=== PATIENT | female | born 1965 | race Caucasian/White ===

== ENCOUNTER → 2017-03-24 | Outpatient (CLI) | payer BC ==
--- NOTE | 2017-03-24 17:33 | US ---
EXAMINATION TYPE: US gallbladder DATE OF EXAM: 03/24/2017 COMPARISON: Prior US and CT in PACS CLINICAL HISTORY: R10.11 RUQ Pain, nausea . EXAM MEASUREMENTS: Liver Length: 15.7 cm Gallbladder Wall: 0.2 cm CBD: 0.7 cm Right Kidney: 10.7 x 3.4 x 4.0 cm Pancreas: Obscured by bowel gas, visualized portions show no mass Liver: wnl Gallbladder: No stones or sludge visualized Evidence for sonographic Marinelli's sign: Yes, patient states she is in pain during the exam CBD: Dilated. CBD was also dilated on exam in 2013 Right Kidney: No hydronephrosis or masses seen IMPRESSION: No acute process seen.
== END | disposition home or self-care (01) ==
LOC: RADUSMAIN 16:57
PROVIDERS: ATTEND Family Medicine
DX: R10.11 Right upper quadrant pain (principal)
CPT/HCPCS: 76705

== ENCOUNTER → 2017-12-03 | Outpatient (CLI) | payer BC ==
--- NOTE | 2017-12-04 11:01 | MM ---
Reason for exam: screening (asymptomatic). Last mammogram was performed 4 years and 7 months ago. History: Patient is postmenopausal. Took hormonal contraceptives for 23 years. Physical Findings: A clinical breast exam by your physician is recommended on an annual basis and results should be correlated with mammographic findings. MG Screening Mammo w CAD Bilateral CC and MLO view(s) were taken. Prior study comparison: May 04, 2013, bilateral digital screening mammo w/CAD. June 04, 2011, CAD bilateral diagnostic mammogram. The breast tissue is heterogeneously dense. This may lower the sensitivity of mammography. No suspicious abnormality. No significant changes when compared with prior studies. ASSESSMENT: Negative, BI-RAD 1 RECOMMENDATION: Routine screening mammogram of both breasts in 1 year.
== END | disposition home or self-care (01) ==
LOC: RADMAMWWP 16:47
PROVIDERS: ATTEND Obstetrics & Gynecology
DX: Z12.31 Encounter for screening mammogram for malignant neoplasm of breast (principal)
CPT/HCPCS: 77067

== ENCOUNTER → 2018-08-02 | Outpatient (CLI) | payer BC ==
--- NOTE | 2018-08-03 20:41 | BD ---
EXAMINATION TYPE: Axial Bone Density DATE OF EXAM: 08/02/2018 COMPARISON: NONE CLINICAL HISTORY: 53 YR OLD FEMALE.....ICD-10 CODE: Z78.0 POST MENOPAUSAL SYMPTOMS Height: 63.2 Weight: 126 FRAX RISK QUESTIONS: Current Tobacco Use: YES RISK FACTORS HISTORY OF: Active: YES Postmenopausal woman: YES, AT AGE 46 MEDICATIONS: Additional Medications: REFLUX MEDS, NEXIUM Additional History: GURD EXAM MEASUREMENTS: Bone mineral densitometry was performed using the [employer] System. Bone mineral density as measured about the Lumbar spine is: ----- L1-L4(G/cm2): 1.256 T Score Values are as follows: ----- L1: -0.4 ----- L2: 0.6 ----- L3: 1.9 ----- L4: 0.1 ----- L1-L4: 0.6 Bone mineral density FIRST BONE DENSITY......BASELINE STUDY Bone mineral density about the R hip (g/cm2): 0.972 Bone mineral density about the L hip (g/cm2): 1.036 T Score values are as follows: -----R Neck: -0.2 -----L Neck: -0.1 -----R Total: 0.2 -----L Total: -0.3 Bone mineral density BASELINE STUDY FRAX%s: THERE IS A 4.7% CHANCE FOR A MAJOR OSTEOPOROTIC FX AND A 0.2% FOR HIP FX....PROBABILITY OF FX IN 10 YRS TIME IMPRESSION: Normal (Values between +1 and -1 indicate normal bone mass). Consider repeating this study in 5 year s or sooner if there is some new clinical indication. NOTE: T-SCORE=SD OF THE YOUNG ADULT MEAN.
== END | disposition home or self-care (01) ==
LOC: RADBDWWP 16:23
PROVIDERS: ATTEND Family Medicine
DX: Z13.820 Encounter for screening for osteoporosis (principal); Z78.0 Asymptomatic menopausal state
CPT/HCPCS: 77080

== ENCOUNTER → 2023-05-18 | Outpatient (CLI) | payer OTHER ==
--- NOTE | 2023-05-18 08:08 | MM ---
Reason for Exam: Clinical finding. Last mammogram was performed 5 year(s) and 5 month(s) ago. Indicated Problems: Lump or thickening of the right side for 1 Week(s). Patient History: Menarche at age 12. First Full-Term at age 15. Postmenopausal. Patient used Hormonal Contraceptives for 23 years. Risk Values: Paulette 5 year model risk: 0.9%. NCI Lifetime model risk: 4.9%. Prior Study Comparison: 08/20/2009 Left Diagnostic Mammogram, [facility]. 06/04/2011 Bilateral Diagnostic Mammogram, [facility]. 05/04/2013 Bilateral Screening Mammogram, [facility]. 12/03/2017 Bilateral Screening Mammogram, [facility]. Tissue Density: There are scattered fibroglandular densities. Findings: Analyzed By CAD. Pattern appears symmetrical and stable. Scattered benign-appearing calcifications are present. A marker locates a palpable abnormality within the right breast. On the mediolateral oblique view there is 0.5 cm oval density located 6 cm from the nipple. Ultrasound is recommended for additional evaluation. Overall Assessment: Incomplete: need additional imaging evaluation, BI-RAD 0 Management: Diagnostic Breast Ultrasound of the right breast. A negative mammogram report should not preclude additional follow up of suspicious palpable abnormalities. Patient should continue monthly self breast exam. A clinical breast exam by your physician is recommended on an annual basis and results should be correlated with mammographic findings. Electronically signed and approved by: Drake Severino D.O. Radiologis
--- NOTE | 2023-05-18 09:00 | USB ---
Reason for Exam: Clinical finding. Patient History: Menarche at age 12. First Full-Term at age 15. Postmenopausal. Patient used Hormonal Contraceptives for 23 years. Risk Values: Paulette 5 year model risk: 0.9%. NCI Lifetime model risk: 4.9%. Prior Study Comparison: 06/04/2011 Bilateral Diagnostic Mammogram, [facility]. 05/04/2013 Bilateral Screening Mammogram, [facility]. 12/03/2017 Bilateral Screening Mammogram, [facility]. Findings: The area of palpable concern of the right breast, the axilla of the right breast and the retroareolar of the right breast were scanned. There is a thick-walled hypoechoic area measuring 0.5 x 0.3 x 0.5 cm subcutaneous tissues at the palpable abnormality. Small complex cyst or abscess could be considered. Short-term follow-up is recommended. This may have an adjacent hypoechoic rounded area could be a small cyst but is too small to classify.. Overall Assessment: Probably benign, BI-RAD 3 Management: Diagnostic Breast Ultrasound of the right breast in 3 months. A clinical breast exam by your physician is recommended on an annual basis and results should be correlated with mammographic findings. This exam should not preclude additional follow-up of suspicious palpable abnormalities. Results were given to the patient verbally at the time of exam. Electronically signed and approved by: Drake Severino D.O. Radiologis
== END | disposition home or self-care (01) ==
LOC: RADMAMWWP 07:31
PROVIDERS: ATTEND Family Medicine
DX: N63.10 Unspecified lump in the right breast, unspecified quadrant (principal); Z78.0 Asymptomatic menopausal state
CPT/HCPCS: 77062; 77066

== ENCOUNTER → 2023-08-19 | Outpatient (CLI) | payer OTHER ==
--- NOTE | 2023-08-19 13:41 | MM ---
Reason for Exam: Follow-up at short interval from prior study. Last screening mammogram was performed 3 month(s) ago. Patient History: Menarche at age 12. First Full-Term at age 15. Postmenopausal. Patient used Hormonal Contraceptives for 23 years. Risk Values: Paulette 5 year model risk: 0.9%. NCI Lifetime model risk: 4.9%. Prior Study Comparison: 05/04/2013 Bilateral Screening Mammogram, [facility]. 12/03/2017 Bilateral Screening Mammogram, [facility] 05/18/2023 Bilateral MG 3D diag mammo w/cad [facility], [facility]. Tissue Density: Right: There are scattered fibroglandular densities. Findings: Analyzed By CAD. Chronic nodularity central right breast. We note the location of the previous alcohol marker along the medial aspect. A subtle underlying low-density nodularity seen 3 months ago is no longer identified. No significant change from prior exams. Overall Assessment: Incomplete: need additional imaging evaluation, BI-RAD 0 Management: Diagnostic Breast Ultrasound of the right breast. Electronically signed and approved by: Florentino Krause M.D. Radiologist
--- NOTE | 2023-08-19 14:25 | USB ---
Reason for Exam: Follow-up at short interval from prior study. Patient History: Menarche at age 12. First Full-Term at age 15. Postmenopausal. Patient used Hormonal Contraceptives for 23 years. Risk Values: Paulette 5 year model risk: 0.9%. NCI Lifetime model risk: 4.9%. Technique: Method: Targeted. Prior Study Comparison: 05/04/2013 Bilateral Screening Mammogram, [facility]. 12/03/2017 Bilateral Screening Mammogram, [facility]. 05/18/2023 Bilateral MG 3D diag mammo w/cad [facility], [facility]. Findings: The lower inner quadrant of the right breast, the axilla of the right breast and the retroareolar of the right breast were scanned. Targeted ultrasound medial aspect of the right breast from 12:00 to 6:00 including the subareolar region and axilla. The previous heterogeneous area at the patient's 3:00 site has resolved. Patient no longer has a palpable abnormality. No other solid or cystic lesion. Findings compatible with a small hematoma that has resolved.. Overall Assessment: Benign, BI-RAD 2 Management: Screening Mammogram of both breasts in 9 months. In time for routine annual screening mammograms. A clinical breast exam by your physician is recommended on an annual basis and results should be correlated with mammographic findings. This exam should not preclude additional follow-up of suspicious palpable abnormalities. Results were given to the patient verbally at the time of exam. Electronically signed and approved by: Florentino Krause M.D. Radiologist
== END | disposition home or self-care (01) ==
LOC: RADMAMWWP 12:51
PROVIDERS: ATTEND Family Medicine
DX: R92.321 Mammographic fibroglandular density, right breast (principal); Z78.0 Asymptomatic menopausal state
CPT/HCPCS: 77061; 77065